=== PATIENT | female | born 1945 | race American Indian/Alaskan Native ===

== ENCOUNTER 2017-01-05 10:50 | Emergency (ER) | payer MEDICARE ==
[2017-01-05 12:10] VITALS: BP 136/72
[2017-01-05 12:13] LABS: Bilirubin,Urine NEG (Negative); Blood,Urine NEG (Negative); Ketones,Urine NEG (Negative); Leukocyte Esterase,Urine LG (Negative); Mucus,Urine FEW /HPF; Nitrite,Urine NEG (Negative); Protein,Urine <15 mg/dL mg/dL (Negative); Urobilinogen,Urine < 2.0 mg/dL (<2.0)
--- NOTE | 2017-01-05 12:41 | Emergency Department Report ---
HPI - General Chief Complaint: Urogenital-Female Time Seen by Provider: 01/05/17 12:05 - HPI HPI: This is a 71 year-old female presents to the emergency department from home with complaint of 2 episodes of dysuria, one yesterday and one today. This morning the patient was urinating and suddenly had a sharp pain but it resolved upon finishing her urination. When she went to wipe herself or "pat myself dry" the patient noticed a small amount of blood. She denies any vaginal bleeding, vaginal discharge, increased urinary frequency or urgency, nausea, vomiting, abdominal pain or fever. She has a past medical history of arthritis and hypertension. Her primary care physician is Dr. Jayla Palmer. She did not take anything for her symptoms prior to presentation. No recent travel or sick contacts at home. ED Past Medical Hx - Past Medical History Hx Hypertension: Yes Hx Arthritis: Yes - Surgical History Additional Surgical History: ectopic -tube removed - Social History Smoking Status: Never Smoker Substance Use Type: None - Medications Home Medications: Home Medications Medication Instructions Recorded Confirmed Last Taken Type Nitrofurantoin [place]/M-Cryst 100 mg PO BID #14 capsule 01/05/17 Unknown Rx [Macrobid CAP] ED Review of Systems ROS: Stated complaint: VAGINAL BLEEDING Other details as noted in HPI Comment: All other systems reviewed and negative Constitutional: denies: chills, fever Eyes: denies: eye pain, eye discharge, vision change ENT: denies: ear pain, throat pain Respiratory: denies: cough, shortness of breath, wheezing Cardiovascular: denies: chest pain, palpitations Gastrointestinal: denies: abdominal pain, nausea, diarrhea Genitourinary: dysuria, hematuria Musculoskeletal: denies: back pain, joint swelling, arthralgia Skin: denies: rash, lesions Neurological: denies: headache, weakness, paresthesias Physical Exam - Physical Exam Vital Signs: Vital Signs 01/05/17 01/05/17 11:09 12:08 Temperature 98.1 F Pulse Rate 77 70 Respiratory 17 16 Rate Blood Pressure 140/86 Blood Pressure 136/72 [Right] O2 Sat by Pulse 100 100 Oximetry Physical Exam: GENERAL: The patient is well-developed well-nourished. HENT: Normocephalic. Atraumatic. Patient has moist mucous membranes. EYES: Extraocular motions are intact. Pupils equal reactive to light bilaterally. NECK: Supple. Trachea is midline. CHEST/LUNGS: Clear to auscultation. There is no respiratory distress noted. HEART/CARDIOVASCULAR: Regular. There is no tachycardia. There is no gallop rub or murmur. ABDOMEN: Abdomen is soft, nontender. Patient has normal bowel sounds. There is no abdominal distention. SKIN: Skin is warm and dry. NEURO: The patient is awake, alert, and oriented. The patient is cooperative. The patient has no focal neurologic deficits. The patient has normal speech and gait. MUSCULOSKELETAL: There is no tenderness or deformity. There is no limitation range of motion. There is no evidence of acute injury. ED Course Vital Signs 01/05/17 01/05/17 11:09 12:08 Temperature 98.1 F Pulse Rate 77 70 Respiratory 17 16 Rate Blood Pressure 140/86 Blood Pressure 136/72 [Right] O2 Sat by Pulse 100 100 Oximetry ED Medical Decision Making - Medical Decision Making 71-year-old female presents to the emergency department after she had 2 episodes of dysuria, 1 yesterday and 1 today, followed by a small amount of gross hematuria seen while wiping after urination this morning. At this time the patient has absolutely no abdominal, pelvic or vaginal pain/discomfort. Vital signs stable throughout ED course. Urinalysis shows 19 white blood cells and 11 red blood cells in the urine. Since the patient does not have any significant discomfort, any true vaginal bleeding, and has stable vitals, I did not feel that a large amount of blood work or any imaging was necessary at this time. She'll be treated with Macrobid for a urinary tract infection. She has been encouraged to follow up with her primary care physician Dr. Palmer and also has been given a referral for a urologist regarding hematuria. She will return to the ER with any worsening of her symptoms or any acute distress. - Differential Diagnosis UTI, interstitial cystitis, malignancy Critical Care Time: No Critical care attestation.: If time is entered above; I have spent that time in minutes in the direct care of this critically ill patient, excluding procedure time. ED Disposition Clinical Impression: UTI (urinary tract infection) Qualifiers: Urinary tract infection type: acute cystitis Hematuria presence: with hematuria Qualified Code(s): N30.01 - Acute cystitis with hematuria Hematuria Qualifiers: Hematuria type: unspecified type Qualified Code(s): R31.9 - Hematuria, unspecified Disposition: DC- TO HOME OR SELFCARE Is pt being admited?: No Condition: Stable Instructions: Urinary Tract Infection in Women (ED), Acute Hematuria (ED) Additional Instructions: Please follow-up with your primary care physician in the next few days to make sure there is resolution of your urinary tract infection and for further evaluation of the blood seen in the urine. I have also given you a referral for a local urologist, Dr. Guerrero, to follow up regarding the blood U saw in your urine. Return to the emergency Department with any worsening of your symptoms, increased bleeding, abdominal pain, development of fever, or any acute distress. Prescriptions: Nitrofurantoin [place]/M-Cryst [Macrobid CAP] 100 mg PO BID #14 capsule Referrals: JAYLA PALMER MD [Staff Physician] - 3-5 Days KAVON GUERRERO MD [Staff Physician] - 3-5 Days Time of Disposition: 12:44
[2017-01-05] MEDS ORDERED: MACROBID PO ONE (12:42)
== END 2017-01-05 13:10 | disposition home or self-care (01) ==
LOC: ED 10:50
DX: N39.0 Urinary tract infection, site not specified (principal); R31.9 Hematuria, unspecified; I10 Essential (primary) hypertension; M19.90 Unspecified osteoarthritis, unspecified site
CPT/HCPCS: 81001; 99282

== ENCOUNTER 2018-11-22 09:24 | Emergency (ER) | payer MEDICARE ==
[2018-11-22 09:32] VITALS: BP 156/89
--- NOTE | 2018-11-22 10:35 | Emergency Department Report ---
ED Eye Problem HPI - General Chief complaint: Eye Problems Stated complaint: R EYE IRRITATION Time Seen by Provider: 11/22/18 10:05 Source: patient Mode of arrival: Ambulatory Limitations: No Limitations - History of Present Illness Initial comments: Patient is a 73-year-old [place] female who states she woke up this morning with some redness to the right eye. Patient states she has some very mild irritation to the eye and a stone when she woke up it maybe eyelash was in the eye. She looked very stated that it was bright red. Patient has no history of any trauma. States she has not been excessively the. States her vision is normal. - Related Data Previous Rx's Medication Instructions Recorded Last Taken Type Nitrofurantoin [place]/M-Cryst 100 mg PO BID #14 capsule 01/05/17 Unknown Rx [Macrobid CAP] Naphazoline HCl/Pheniramine 2 drop OD BID #1 bottle 11/22/18 Unknown Rx [Naphcon-A Eye Drops] Allergies Allergy/AdvReac Type Severity Reaction Status Date / Time No Known Allergies Allergy Unverified 01/05/17 11:18 ED Review of Systems ROS: Stated complaint: R EYE IRRITATION Other details as noted in HPI Comment: All other systems reviewed and negative ED Past Medical Hx - Past Medical History Previous Medical History?: Yes Hx Hypertension: Yes Hx Arthritis: Yes - Surgical History Past Surgical History?: Yes Additional Surgical History: ectopic -tube removed - Social History Smoking Status: Never Smoker Substance Use Type: Prescribed - Medications Home Medications: Home Medications Medication Instructions Recorded Confirmed Last Taken Type Nitrofurantoin [place]/M-Cryst 100 mg PO BID #14 capsule 01/05/17 Unknown Rx [Macrobid CAP] Naphazoline HCl/Pheniramine 2 drop OD BID #1 bottle 11/22/18 Unknown Rx [Naphcon-A Eye Drops] ED Physical Exam - General Limitations: No Limitations General appearance: alert, in no apparent distress - Head Head exam: Present: atraumatic, normocephalic - Eye Eye exam: Present: PERRL, EOMI - Expanded Eye Exam Expanded Eyelids: Normal Inspection: Right Pupils: Regular, Round: Bilateral Sclera/Conjunctival: Hemorrhage: Right (redness does not cross the border of the iris) Anterior chamber: Normal Inspection: Right - ENT ENT exam: Present: mucous membranes moist - Respiratory Respiratory exam: Absent: respiratory distress ED Course Vital Signs 11/22/18 09:26 Temperature 98.1 F Pulse Rate 76 Respiratory 18 Rate Blood Pressure 156/89 O2 Sat by Pulse 100 Oximetry Critical care attestation.: If time is entered above; I have spent that time in minutes in the direct care of this critically ill patient, excluding procedure time. ED Disposition Clinical Impression: Subconjunctival hemorrhage of right eye Disposition: DC-01 TO HOME OR SELFCARE Is pt being admited?: No Does the pt Need Aspirin: No Condition: Stable Instructions: Subconjunctival Hemorrhage (ED) Prescriptions: Naphazoline HCl/Pheniramine [Naphcon-A Eye Drops] 2 drop OD BID #1 bottle Time of Disposition: 10:35
== END 2018-11-22 11:01 | disposition home or self-care (01) ==
LOC: ED 09:24
DX: H11.31 Conjunctival hemorrhage, right eye (principal); I10 Essential (primary) hypertension; M19.90 Unspecified osteoarthritis, unspecified site; Z98.890 Other specified postprocedural states; Z90.79 Acquired absence of other genital organ(s); Z79.899 Other long term (current) drug therapy

== ENCOUNTER 2020-05-29 10:19 | Emergency (ER) | payer MEDICARE ==
--- NOTE | 2020-05-29 10:40 | Event Note ---
ED Screening Note ED Screening Note: 75-year-old female that presents with right leg pain. This initial assessment/diagnostic orders/clinical plan/treatment(s) is/are subject to change based on patients health status, clinical progression and re- assessment by fellow clinical providers in the ED. Further treatment and workup at subsequent clinical providers discretion. Patient/guardian urged not to elope from the ED as their condition may be serious if not clinically assessed and managed. Initial orders include: labs US doppler
[2020-05-29 11:39] LABS: Basophils # (Auto) 0.1 K/mm3 (0.0-0.1); Basophils % (Auto) 0.9 % (0.0-1.8); Eosinophils # (Auto) 0.1 K/mm3 (0.0-0.4); Eosinophils % (Auto) 1.2 % (0.0-4.3); Hematocrit 39.3 % (30.3-42.9); Hemoglobin 13.9 gm/dl (10.1-14.3); Lymphocytes # (Auto) 2.6 K/mm3 (1.2-5.4); Lymphocytes % (Auto) 40.2 % (13.4-35.0); Mean Corpuscular HGB Conc 35 % (30-34); Mean Corpuscular Volume 84 fl (79-97); Monocytes # (Auto) 0.5 K/mm3 (0.0-0.8); Monocytes % (Auto) 7.7 % (0.0-7.3); Platelet Count 270 K/mm3 (140-440); Red Cell Distribution Width 13.8 % (13.2-15.2)
[2020-05-29 12:15] LABS: Alanine Aminotransferase 12 units/L (7-56); Blood Urea Nitrogen 12 mg/dL (7-17); Calcium 9.9 mg/dL (8.4-10.2); Hemolysis Index 11
[2020-05-29 12:22] LABS: BUN/Creatinine Ratio 20
--- NOTE | 2020-05-29 12:50 | Vascular Lab Report ---
DUPLEX DOPPLER LOWER EXTREMITY VEINS, RIGHT INDICATION / CLINICAL INFORMATION: right leg pain. TECHNIQUE: Duplex doppler imaging was performed through the veins of the right lower extremity using venous comp ression and other maneuvers. COMPARISON: None available. FINDINGS: RIGHT COMMON FEMORAL VEIN: Negative. RIGHT FEMORAL VEIN: Negative. RIGHT POPLITEAL VEIN: Negative. RIGHT CALF VEINS: Negative. ADDITIONAL FINDINGS: None. IMPRESSION: 1. No sonographic evidence for DVT in the right lower extremity. Signer Name: Flavio Shi MD Signed: 05/29/2020 12:45 PM Workstation Name: [id number]
[2020-05-29 17:40] VITALS: BP 154/88
--- NOTE | 2020-05-29 17:51 | Emergency Department Report ---
ED Extremity Problem HPI - General Chief complaint: Extremity Problem,Nontraumatic Stated complaint: LEG CHECKED/PAIN Time Seen by Provider: 05/29/20 10:38 Source: patient Mode of arrival: Ambulatory Limitations: No Limitations - History of Present Illness Initial comments: 75-year-old -Portuguese female presents to the emergency room for 1 week hi story of right leg pain that is worse with standing on it and better when she elevates. Patient denies any injury denies any swelling. Denies any shortness of breath no chest pain no injury. She did take Tylenol about 1 week ago and states that it had helped. She has not taken it since. MD Complaint: extremity pain Location: right, lower extremity History of Same: No Severity scale (0 -10): 0 - Related Data Previous Rx's Medication Instructions Recorded Last Taken Type Nitrofurantoin [place]/M-Cryst 100 mg PO BID #14 capsule 01/05/17 Unknown Rx [Macrobid CAP] Naphazoline HCl/Pheniramine 2 drop OD BID #1 bottle 11/22/18 Unknown Rx [Naphcon-A Eye Drops] Allergies Allergy/AdvReac Type Severity Reaction Status Date / Time No Known Allergies Allergy Unverified 01/05/17 11:18 ED Review of Systems ROS: Stated complaint: LEG CHECKED/PAIN Other details as noted in HPI ED Past Medical Hx - Past Medical History Previous Medical History?: Yes Hx Hypertension: Yes Hx Arthritis: Yes - Surgical History Past Surgical History?: Yes Additional Surgical History: ectopic -tube removed - Social History Smoking Status: Never Smoker Substance Use Type: Prescribed - Medications Home Medications: Home Medications Medication Instructions Recorded Confirmed Last Taken Type Nitrofurantoin [place]/M-Cryst 100 mg PO BID #14 capsule 01/05/17 Unknown Rx [Macrobid CAP] Naphazoline HCl/Pheniramine 2 drop OD BID #1 bottle 11/22/18 Unknown Rx [Naphcon-A Eye Drops] ED Physical Exam - General Limitations: No Limitations ED Course Vital Signs 05/29/20 05/29/20 10:41 17:39 Temperature 98.1 F Pulse Rate 70 68 Respiratory 20 16 Rate Blood Pressure 157/85 Blood Pressure 154/88 [Right] O2 Sat by Pulse 98 100 Oximetry ED Medical Decision Making - Lab Data Result diagrams: 05/29/20 11:22 05/29/20 11:22 - Radiology Data Radiology results: report reviewed Referring Physician:BRISEIDA NARVAEZPatient Name:STACY MAEPatient ID:[id number] of :[id number]:FemaleAccession:[id number] Date:[id number] Status:Finalized Findings [facility] [address] [place] [address] Vascular Lab Report Signed Patient: STACY MAE MR#: [id number] : 1945 Acct:[id number] Age/Sex: 75 / F ADM Date: 05/29/20 Loc: ED Attending Dr: Ordering Physician: BRISEIDA NARVAEZ NP Date of Service: 05/29/20 Procedure(s): VL venous duplex LE RT Accession Number(s): [id number] cc: BRISEIDA NARVAEZ NP DUPLEX DOPPLER LOWER EXTREMITY VEINS, RIGHT INDICATION / CLINICAL INFORMATION: right leg pain. TECHNIQUE: Duplex doppler imaging was performed through the veins of the right lower extremity using venous compression and other maneuvers. COMPARISON: None available. FINDINGS: RIGHT COMMON FEMORAL VEIN: Negative. RIGHT FEMORAL VEIN: Negative. RIGHT POPLITEAL VEIN: Negative. RIGHT CALF VEINS: Negative. ADDITIONAL FINDINGS: None. IMPRESSION: 1. No sonographic evidence for DVT in the right lower extremity. Signer Name: Flavio Shi MD Signed: 05/29/2020 12:45 PM Workstation Name: [id number] Transcribed By: [place] Dictated By: Falvio Shi MD Electronically Authenticated By: Flavio Shi MD Signed Date/Time: 05/29/20 1245 DD/ 1244 TD/TT: - Medical Decision Making 75-year-old -Portuguese female presents to the emergency room for 1 week history of right leg pain that is worse with standing on it and better when she elevates. Patient denies any injury denies any swelling. Denies any shortness of breath no chest pain no injury. She did take Tylenol about 1 week ago and states that it had helped. She has not taken it since. Critical care attestation.: If time is entered above; I have spent that time in minutes in the direct care of this critically ill patient, excluding procedure time. ED Disposition Clinical Impression: Right leg pain Disposition: DC-01 TO HOME OR SELFCARE Is pt being admited?: No Does the pt Need Aspirin: No Condition: Stable Additional Instructions: Ultrasound is negative for any DVT/clot. Continue with Tylenol ibuprofen elevate and rest throughout the day. Referrals: MEEK PALMER MD [Primary Care Provider] - 3-5 Days
== END 2020-05-29 17:36 | disposition home or self-care (01) ==
LOC: ED 10:19
DX: M79.604 Pain in right leg (principal); I10 Essential (primary) hypertension; M19.91 Primary osteoarthritis, unspecified site; Z98.890 Other specified postprocedural states; Z79.899 Other long term (current) drug therapy
CPT/HCPCS: 36415; 80053; 85025

== ENCOUNTER 2020-09-23 17:34 | Emergency (ER) | payer MEDICARE ==
[2020-09-23] MEDS ORDERED: ACETAMINOPHEN 500 MG TAB PO STA (20:15)
--- NOTE | 2020-09-23 20:46 | XRay Report ---
XR hand 3+V RT INDICATION / CLINICAL INFORMATION: medial palmar pain and lac after fall. COMPARISON: None available. FINDINGS: BONES/JOINT(S): No acute fracture or subluxation. 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 SOFT TISSUES: No significant abnormality. ADDITIONAL FINDINGS: None. Signer Name: Marek Hill MD Signed: 09/23/2020 8:41 PM Workstation Name: [id number]
--- NOTE | 2020-09-23 21:11 | Emergency Department Report ---
ED General Adult HPI - General Chief complaint: Fall Stated complaint: FALL Time Seen by Provider: 09/23/20 20:15 Source: patient Mode of arrival: Ambulatory Limitations: No Limitations - History of Present Illness Initial comments: 75-year-old -[place]ian female patient presents with complaints of right hand pain and cut after a trip and fall injury today. Patient states while walking her dog she lost her footing and fell hitting her head on the ground. She states she caught herself with both of her hands. She denies any loss of consciousness, headache, numbness/tingling/weakness in her limbs, neck pain, confusion, memory loss, difficulty with speech/ambulation, or blood thinner use. No nausea or vomiting per patient. She rates her current hand pain as a 6/10 in severity. -: Sudden Severity scale (0 -10): 7 - Related Data Previous Rx's Medication Instructions Recorded Last Taken Type Nitrofurantoin [place]/M-Cryst 100 mg PO BID #14 capsule 01/05/17 Unknown Rx [Macrobid CAP] Naphazoline HCl/Pheniramine 2 drop OD BID #1 bottle 11/22/18 Unknown Rx [Naphcon-A Eye Drops] Acetaminophen [Acetaminophen TAB] 500 - 1,000 mg PO Q6H PRN #20 09/23/20 Unknown Rx tablet Naproxen [EC-Naproxen] 375 mg PO BID PRN #14 tablet. 09/23/20 Unknown Rx Allergies Allergy/AdvReac Type Severity Reaction Status Date / Time No Known Allergies Allergy Unverified 01/05/17 11:18 ED Review of Systems ROS: Stated complaint: FALL Other details as noted in HPI Constitutional: denies: malaise Respiratory: denies: shortness of breath Cardiovascular: denies: chest pain Gastrointestinal: denies: nausea, vomiting Neurological: as per HPI ED Past Medical Hx - Past Medical History Previous Medical History?: Yes Hx Hypertension: Yes Hx Arthritis: Yes - Surgical History Past Surgical History?: Yes Additional Surgical History: ectopic -tube removed - Social History Smoking Status: Never Smoker Substance Use Type: None - Medications Home Medications: Home Medications Medication Instructions Recorded Confirmed Last Taken Type Nitrofurantoin [place]/M-Cryst 100 mg PO BID #14 capsule 01/05/17 Unknown Rx [Macrobid CAP] Naphazoline HCl/Pheniramine 2 drop OD BID #1 bottle 11/22/18 Unknown Rx [Naphcon-A Eye Drops] Acetaminophen [Acetaminophen TAB] 500 - 1,000 mg PO Q6H PRN #20 09/23/20 Unknown Rx tablet Naproxen [EC-Naproxen] 375 mg PO BID PRN #14 tablet. 09/23/20 Unknown Rx ED Physical Exam - General Limitations: No Limitations General appearance: alert, in no apparent distress - Head Head exam: Present: normocephalic - Expanded Head Exam Expanded Head exam: Present: hematoma (1 to 2 cm hematoma noted to left eyebrow with mild abrasion; no bony tenderness to palpation noted). Absent: laceration, racoon eyes, harrison's sign, tenderness of temporal artery - Eye Eye exam: Present: normal appearance, PERRL, EOMI. Absent: scleral icterus - Neck Neck exam: Present: normal inspection, full ROM. Absent: tenderness - Respiratory Respiratory exam: Absent: respiratory distress - Cardiovascular Cardiovascular Exam: Present: regular rate - Extremities Exam Extremities exam: Present: full ROM, other (Small laceration noted to lower lateral right palm without obvious foreign bodies; there is mild tenderness to palpation surrounding the wound and bony tenderness noted; patient has full range of motion of the right hand and normal sensation and perfusion) - Back Exam Back exam: Present: full ROM - Neurological Exam Neurological exam: Present: alert, oriented X3, CN II-XII intact, normal gait. Absent: motor sensory deficit - Psychiatric Psychiatric exam: Present: normal affect, normal mood - Skin Skin exam: Present: warm, dry, normal color, abrasion. Absent: rash, ecchymosis ED Course Vital Signs 09/23/20 09/23/20 17:41 20:29 Temperature 97.7 F Pulse Rate 95 H Respiratory 15 20 Rate Blood Pressure 149/77 O2 Sat by Pulse 99 Oximetry ED Medical Decision Making - Radiology Data Radiology results: report reviewed XR hand 3+V RT INDICATION / CLINICAL INFORMATION: medial palmar pain and lac after fall. COMPARISON: None available. FINDINGS: BONES/JOINT(S): No acute fracture or subluxation. Mild DJD in the interphalangeal joints and thumb CMC joint. SOFT TISSUES: No significant abnormality. ADDITIONAL FINDINGS: None. - Medical Decision Making 75-year-old -[place]ian female patient presents with complaints of right hand pain and cut after a trip and fall injury today. Patient states while walking her dog she lost her footing and fell hitting her head on the ground. She states she caught herself with both of her hands. She denies any loss of consciousness, headache, numbness/tingling/weakness in her limbs, neck pain, confusion, memory loss, difficulty with speech/ambulation, or blood thinner use. No nausea or vomiting per patient. She rates her current hand pain as a 6/10 in severity. Patient also reports her tetanus vaccination is up-to-date Patient has neurally intact. X-ray of the hand is negative for any acute bony abnormalities or foreign bodies. Wound cleaned and sterile dressing placed. Rice method recommended for hand pain. She is well-appearing and stable for discharge home. Discussed wound care instructions and signs and symptoms that should prompt immediate return to the emergency department in detail with patient verbalizes understanding. Critical care attestation.: If time is entered above; I have spent that time in minutes in the direct care of this critically ill patient, excluding procedure time. ED Disposition Clinical Impression: Head injury, Laceration of right hand, Injury of right hand, Sprain of left elbow Disposition: DC-01 TO HOME OR SELFCARE Is pt being admited?: No Condition: Stable Instructions: Head Injury, Adult, Nonsutured Laceration Care, Intermetacarpal Sprain, Elbow Sprain Prescriptions: Acetaminophen [Acetaminophen TAB] 500 - 1,000 mg PO Q6H PRN #20 tablet PRN Reason: pain Naproxen [EC-Naproxen] 375 mg PO BID PRN #14 tablet.[address] BECERRA Reason: pain Referrals: PRIMARY CARE, [Referring] - 3-5 Days
[2020-09-23 22:49] VITALS: BP 142/80
== END 2020-09-23 22:00 | disposition home or self-care (01) ==
LOC: ED 17:34
DX: S09.90XA Unspecified injury of head, initial encounter (principal); S61.411A Laceration without foreign body of right hand, initial encounter; I10 Essential (primary) hypertension; M19.91 Primary osteoarthritis, unspecified site; Z98.890 Other specified postprocedural states; Z79.899 Other long term (current) drug therapy; W01.0XXA Fall on same level from slipping, tripping and stumbling without subsequent striking against object, initial encounter; Y93.89 Activity, other specified; Y92.89 Other specified places as the place of occurrence of the external cause; Y99.8 Other external cause status